=== PATIENT | female | born 1975 | race Caucasian/White ===

== ENCOUNTER → 2024-02-04 15:17 | Outpatient (REF) | payer OTHER, SELFPAY | LOC: ANHLAB 15:17 | PROVIDERS: PCP Family Medicine; Visit Provider Plastic Surgery | DX: H02.66 Xanthelasma of left eye, unspecified eyelid (principal) | CPT/HCPCS: 88305 ==

== ENCOUNTER → 2024-11-19 09:07 | Outpatient (CLI) | payer OTHER, SELFPAY ==
--- NOTE | ~2024-11-19 | XR_ITS ---
XR hip RT min 2V 11/19/2024 09:36 Indication: Right hip pain Procedure: 2 views right hip Comparison: No prior studies for comparison. Findings: No fracture, subluxation or dislocation. No soft tissue abnormality. No foreign bodies. Impression: 1: No acute bone or joint abnormality. Reviewed, dictated and finalized at location B. NI RELATIONS OFFICER Impression: 1: No acute bone or joint abnormality.
--- NOTE | ~2024-11-19 | XR_ITS ---
Lumbosacral Spine: AP, oblique, and lateral views Clinical History: Pain Findings: The normal lordotic curve is maintained. The vertebral bodies and posterior elements are i ntact. The intervertebral disc spaces are preserved. The sacroiliac joints are normally outlined. Impression: No significant abnormality. Reviewed, dictated and finalized at [facility]. CARVER HAND Impression: No significant abnormality.
--- OUTSIDE RECORDS SUMMARY | 2024-11-19 09:20 | XMS_ITS | Clinical Summary ---
Author Organization [facility] Address [address] [place] [address] Care Team Providers Care Machinist Job Setter Name Role Phone Ivon Hitchcock MD Unavailable [phone] Ino Basilio MD Primary Care Provider [phone] Allergies Active Allergy Reactions Criticality Noted Date Comments Penicillins Other (See comments),Hives High Reaction: Unknown, , Reaction: Hives, Medications cranberry 400 mg capsule Take 1 capsule by mouth daily 04/13/2020 Active lisinopriL (PRINIVIL,ZESTR IL) 10 mg tablet TAKE 1 TABLET(10 MG) BY MOUTH DAILY 90 tablet 12/20/2022 Active famotidine (PEPCID) 20 mg tablet Take 1 tablet by mouth daily 06/23/2021 Active ferrous sulfate 325 mg (65 mg of elemental iron) tablet Take 1 tablet by mouth daily 03/14/2022 Active loratadine (CLARITIN) 10 mg tablet Take 1 tablet by mouth daily 06/23/2021 Active cholecalciferol (VITAMIN D-3) 2000 unit capsule 2,000 Units Active multivitamin capsule Take 1 capsule by mouth daily Active Active Problems Problem Noted Date Diagnosed Date 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 Family history of colon cancer in father 022 Special screening for malignant neoplasms, colon 03/23/2022 Overview (03/23/2022): Added automatically from request for surgery [id number] Class 2 obesity due to exces s calories without serious comorbidity with body mass index (BMI) of 38.0 to 38.9 in adult 06/05/2018 Gestational diabetes mellitus, class A2 06/20/20 16 Dysuria 12/12/2015 Anovulation 11/03/2015 Possible , not yet confirmed 06/29/2015 Female infertility 03/24/2014 Hypertension Immunizations Name Administration Dates Next Due Influenza, Quadrivalent, Spl it, Preservative Free, Intramuscular 07/22/2021 MMR 07/01/2016 Tdap 06/14/2016 Surgical History Surgery Date Site/Laterality Comments TUBAL LIGATION BTL OTHER SURGICAL HISTORY 10/14/2005 - 10/13/2006 ovarian cyst removed, RSO OTHER SURGICAL HISTORY ovarian cysts: cystectomy OTHER SURGICAL HISTORY placenta previa and GDM: c/section OTHER SURGICAL HISTORY : ENDOMETRIAL BIOPSY BREAST BIOPSY 06/26/2022 Left BREAST BIOPSY 07/03/2022 Left COLONOSCOPY OOPHERECTOMY Left SECTION Medical History Medical History Date Comments Hx Other Medical ovarian cysts; Comments: CYC 01/14/2017 - Hx Other Medical placenta previa and GDM; Comments: CYC 01/14/2017 -daughter Hx Other Medical ; Comm ents: CYC 01/14/2017 - Abnormal Pap smear of cervix Hypertension GERD (gastroesophageal reflux disease) Hyperlipidemia Family History Medical History Relation Name Comments Colon cancer Father Cancer, colon; Relation Name Status Comments Father Social History Tobacco Use Types Packs/Day Years Used Date Smoking Tobacco: Never Smokeless Tobacco: Never AUDIT-C Answer Date Recorded Q1: How often do you have a drink containing alc ohol? 2-4 times a month 12/20/2022 Q2: How many drinks containi ng alcohol do you have on a typical day when you are drinking? 1 or 2 12/20/2022 Q3: How often do you have si x or more drinks on one occasion? Less than monthly 12/20/2022 PHQ-2 Answer Date Recorded PHQ-2 Total Score (If total score is 3 or more points, staff should administer the PHQ-9) 0 03/23/2022 Personal Safety Answer Date Recorded Getting School Help Needed Denies 10/08 Comments No Sex and Gender Information Value Date Recorded Sex Assigned at Not on file Legal Sex Female 4:42 AM GASTROENTEROLOGIST Gender Identity Female 10/25/2020 7:57 AM GASTROENTEROLOGIST Sexual Orientation Straight 10/25/2020 7: 57 AM GASTROENTEROLOGIST Obstetrics History Para Term AB IAB SAB Ectopic Multiple Livin g Live Births 2 2 2 Date Outcome GA Total Labor Labor/2nd/3rd Weight Sex Type Anes PTL Estrella A1 A5 Name Clin Term Term Last Filed Vital Signs Vital Sign Reading Time Taken Comments Blood Pressure 132/92 12/26/2022 12:15 PM CDT Pulse 93 12/26/2022 12:15 PM CDT Temperature 36.4 C (97.6 F) 12/26/2022 11:42 AM CDT Respiratory Rate 17 12/26/2022 12:1 5 PM CDT Oxygen Saturation 98% 12/26/2022 12: 15 PM CDT Inhaled Oxygen Concentration - - Weight 113.6 kg (250 lb 7.1 oz) 11/19/2022 2:43 PM GASTROENTEROLOGIST Height 165.1 cm (5' 5 ) 11/19/2022 2:43 PM GASTROENTEROLOGIST Body Mass Index 41.68 11/19/2022 2:43 PM GASTROENTEROLOGIST Plan of Treatment Health Maintenance Due Date Last Done Comments Albumin Creatinine Ratio, Urine 1975 Hemoglobin A1C 1975 Dilated Eye Exam 1975 Foot Exam 1975 Lipid Panel 1975 Pneumococcal vaccine <65 (1 of 2 - PCV) 1981 Hepatitis B Screening 1993 Cervical Cancer Screening 10/26/2021 10/26/2020 eGFR 03/11/2023 03/11/2022 Depression Screening 03/23/2023 03/23/2022 Regular Well Visit/Exam 18-64 03/23/2023, 10/26/2020, 06/05/2018 Covid-19 Vaccine ( season) 2024 09/08/2021, 01/10/2021, 12/20/2020 Influenza Vaccine (#1) 2024 07/22/2021 Breast Cancer Screening-Mammogram 12/25/2024 024, 06/04/2022 DTaP/Tdap/Td Vaccine (2 - Td or Tdap) 06/14/202610/2015 Colon Cancer Screening-Colonoscopy 12/26/20323 Hepatitis C Screening Completed 01/12/2014 Procedures Procedure Name Priority Date/Time Associated Diagnosis Comments SCREENING MAMMOGRAM BILATERAL W DESMOND Schedule Routine, Read Routine (OP Routine) 12/26/2023 1:15 PM CDT Screening mammogram, encounter for COLONOSCOPY 12/26/2022 11:03 AM CDT EGFR STAT 03/11/2022 11:03 PM CDT PAP WITH REFLEX TO HIGH RISK HPV Routine 10/26/2020 10:52 AM GASTROENTEROLOGIST SERUM HEPATITIS C AB Routine 01/12/2014 6:00 AM CDT from Last 3 Months or Most Recently Relevant to Health Maintenance Results * Screening Mammogram Bilateral W Desmond (12/26/2023 1:15 PM CDT) Anatomical Region Laterality Modality Breast Bilateral Mammography Impressions 12/26/2023 1:29 PM CDT BI-RADS ATLAS category (overall): 1 - Negative There is no mammographic evidence of malignancy. A 1 year screening mammogram is recommended. The patient has been or will be contacted. We recommend annual screening mammography for women at average risk of breast cancer beginning at age 40, based on guidelines of the [employer] (ACR Practice Parameter for the Performance of Screening and Diagnostic Mammography) and [employer]. For women with and elevated risk of breast cancer, please refer to the ACR Practice Parameter for specific screening recommendations. The patient will be entered into a reminder system with a target due date of 1 year for her next screening exam. Narrative 12/26/2023 1:29 PM CDT Screening Mammogram Bilateral W Desmond: 12/26/23 The study was acquired using full field digital technology and interpreted from soft copy. 2D digital mammographic views, as well as 3D digital tomosynthesis were performed in the CC and MLO projections. CLINICAL: Screening mammogram, encounter for. No relevant medical history has been documented for this patient. No known family history of breast cancer. COMPARISONS: 09/26/2022 Diagnostic Mammogram Left W Desmond 07/03/2022 Stereotactic Breast Biopsy Left 06/26/2022 US Guided Breast Biopsy Left 06/14/2022 US Breast Left Limited 06/04/2022 Screening Mammogram Bilateral W Desmond 12/19/2017 Breast Imaging Screening Outside Reference 12/07/2016 Breast Imaging US Outside Reference 11/16/2016 Breast Imaging Screening Outside Reference BREAST TISSUE: The breasts have scattered areas of fibroglandular density. FINDINGS: There are unchanged biopsy marking clips in the left breast. No suspicious masses, suspicious calcifications, or other suspicious findings are seen within either breast. There has been no suspicious change. us Self Screening Mammogram IMG MAMMO PROCEDURES Fi nal Result * COLONOSCOPY (12/26/2022 11:03 AM CDT) Anatomical Region Laterality Modality Other Narrative Procedure Note Arabella Hand MD - 12/26/2022 11:03 AM CDT [facility] ENDOSCOPY Patient Name: Shana Grimm Procedure Date: 12/26/2022 11:03 AM Date of : 1975 Admit Type: Outpatient Age: 47 Gender: Female Attending MD: Arabella Hand M.D. Room: [facility] ENDOSCOPY ROOM 05 Note Status: Finalized Procedure: Colonoscopy Indications: Family history of colon cancer in a first-degree relative before age 60 years Referring MD: Providers: Arabella Hand M.D. Medicines: See the Anesthesia note for documentation of the administered medications Complications: No immediate complications. Estimated Blood Loss: Estimated blood loss was minimal. Procedure: The benefits, risks and alternatives of theprocedure and sedation were discussed and informed consentwas obtained. All questions were answered. Please referto the signed informed consent document in the medical record. The scope was passed under direct vision.The CF-H180AL colonoscope was introduced through theanus and advanced to the cecum, identified byappendiceal orifice and ileocecal valve. The colonoscopy was performed without difficulty. The patient tolerated the procedure well. The quality of the bowel preparation was adequate. Findings: The perianal and digital rectal examinations were normal. The exam was otherwise normal throughout the examined colon. Non-bleeding internal hemorrhoids were found during retroflexion. Impression: - Non-bleeding internal hemorrhoids. - No specimens collected. Recommendation: - Repeat colonoscopy in 5 years for surveillance. Arabella Hand M.D. Arabella Hand M.D. 12/26/2022 11:43:57 AM . Number of Addenda: 0 Note Initiated On: 12/26/2022 11:03 AM Recognized by the [employer] for promoting quality in endoscopy us Arabella Hand MD ENDOSCOPY PROCEDURES Final Resul t * eGFR (03/11/2022 11:03 PM CDT) eGFR >90 90 - 130 mL/min/1. 73 m2 DUNIA HERNANDEZ Comment: Interpretive Data Reference Interval Normal >/= 90 mL/min/1.73m2 Mildly decreased* 60 - 89 mL/min/1.73m2 Mildly to moderately decreased 45 - 59 mL/min/1.73m2 Moderately to severely decreased 30 - 44 mL/min/1.73m2 Severely decreased 15 - 29 mL/min/1.73m2 Kidney Failure < 15 mL/min/1.73m2 *Relative to young adult level Estimated glomerular filtration rate is determined by the 2020 CKD-EPI equation recommended by the National Kidney Foundation (A Unifying Approach to GFR Estimation: Recommendations of the NKF-ASK Task Force on Reassessing the Inclusion of Race in Diagnosing Kidney Disease, JASN 2020). The CKD-EPI equation should not be used for patients with unstable renal function and has not been validated in children and those over 70. Current interpretive data was last reviewed 2021. Blood 03/11/2022 11:0 3 PM CDT 03/11/2022 11:17 PM CDT Mack Boggs MD LAB BLOOD ORDERABLES Final Result Performing Organization Address City/State/[facility] Co de Phone Number [facility] Department of Laboratories [place] [phone] * Pap with reflex to High Risk HPV (10/26/2020 10:52 AM GASTROENTEROLOGIST) 10/26/2020 10:5 2 AM GASTROENTEROLOGIST 10/27/2020 10:52 AM GASTROENTEROLOGIST Narrative 11/02/2020 10:26 AM GASTROENTEROLOGIST [facility] Department of Pathology [address] [place] [id number] Final Report with Addendum Patient Name: SHANA GRIMM Address: [address] [place] [address] Gender: F : 1975 (Age: 45) Service: Laboratory Location: Lab [facility] #: [id number] Patient Type: Ref Lab Taken: 10/26/2020 Received: 10/27/2020 Accessioned:: 10/28/2020 Reported: 11/02/2020 Physician(s): ASHUTOSH Houston WHNP Diagnosis: Source of Specimen: Imaged Thinprep Pap Test plus HPV - County Or City Auditor Cytologic Material Specimen Adequacy: - Satisfactory for evaluation; endocervical/transformation zone component present General Category: - Negative for intraepithelial lesion or malignancy MARIIA Rivas(ASCP) MARIIA Man(ASCP) Report Electronically Reviewed and Signed Out By LORRAINE ManASCP) 11/02/2020 10:26:39 Addenda: HPV Test Interpretation NEGATIVE for types 16, 18, 31, 33, 35, 39, 45, 51, 52, 56, 58, 59, 66 and 68. Test performed utilizing Gen-doo Aptima assay. MARIIA Man(ASCP) Report Electronically Reviewed and Signed Out By LORRAINE ManASCP) 11/01/2020 15:35:19 Specimen(s) Received: A: Imaged Thinprep Pap Test plus HPV - County Or City Auditor Cytologic Material Clinical History: Last Menstrual Period: 10/17/2020 Menstrual History: Previous Abnormal Pap: ASCUS Regular Cycles The Pap test is a screening test used to aid in the detection of cervical cancer and its precursors. It should not be the sole means by which malignant and premalignant lesions are diagnosed. Both false negative and false positive results may occur. It also has poor sensitivity for the detection of endometrial lesions and should not be used to evaluate suspected endometrial abnormalities. For these reasons it is most important to obtain Pap tests at regular intervals. The performance characteristics of some immunohistochemical stains, fluorescence in-situ hybridization tests and immunophenotyping by flow cytometry cited in this report (if any) were determined by the Surgical Pathology Department at [facility] as part of an ongoing quality control industrial engineer program and in compliance with federally mandated regulations drawn from the Clinical Laboratory Improvement Act of 1988 (CLIA '88). Some of these tests rely on the use of analyte specific reagents and are subject to specific labeling requirements by the US Food and Drug Administration. Such diagnostic tests may only be performed in a facility that is certified by the Department of Health and Human Services as a high complexity laboratory under CLIA '88. The FDA has determined that such clearance or approval is not necessary. This test is used for clinical purposes. It should not be regarded as investigational or for research. Nevertheless, federal rules concerning the medical use of analyte specific reagents require that the following disclaimer be attached to the report: This test was developed and its performance characteristics determined by the Surgical Pathology Department [facility]. It has not been cleared or approved by the U. S. Food and Drug Administration. us Melodie House NP LAB CYTOLOGY ORDERABLES Fi nal Result * Serum Hepatitis C ab (01/12/2014 6:00 AM CDT) HCV ab Negative NEG HISTORICAL RESULTS Serum 01/12/2014 6:00 AM CDT Narrative HISTORICAL RESULTS - 01/13/2014 4:47 AM CDT {Testing performed by: [place] [address]} Interpretive Data If confirmation is required, call Laboratory Customer Service to request sample to be sent to [facility] for Hepatitis C Virus (HCV) RNA Detection and Quantitation by Real-Time Reverse Humanities Division Chair-PCR (RT-PCR). Current interpretive data was last revised on 2012 us Arnoldo Smith MD LAB BLOOD ORDERABLES Final Re sult HISTORICAL RESULTS from Last 3 Months or Most Recently Relevant to Health Maintenance Insurance [facility] CHOICE PLUS [facility] HMO/PPO Address: [facility] [id number] [place] [id number] [facility] CHOICE PLUS [facility] H[facility]/[place] [address] [facility] CHOICE PLUS [facility] HMO/PPO Address: [place] [phone] Care Teams Machinist Job Setter Relationship Specialty Start Date End Date Ino Basilio MD [address] [address] PCP - General Family Medicine 12/26/23 Ivon Hitchcock MD Consulting Physician Obstetrics and Gynecology 06/04/22
--- OUTSIDE RECORDS SUMMARY | 2024-11-19 09:20 | XMS_ITS | Referral Summary ---
Author Organization [facility] Address [address] [place] [address] Care Team Providers Care Mdm Developer Name Role Phone Ivon Hitchcock MD Unavailable [phone] Ino Basilio MD Primary Care Provider [phone] Allergies Active Allergy Reactions Criticality Noted Date [...] (03/23/2022): Added automatically from request for surgery [id number] Class 2 obesity due to exces s calories without serious comorbidity with body mass index (BMI) of 38.0 to 38.9 in adult 06/05/2018 Gestational diabetes mellitus, class A2 06/20/20 16 Dysuria 12/12/2015 Anovulation 11/03/2015 Possible , not yet confirmed 06/29/2015 Female infertility 03/24/2014 Hypertension Immunizations Name Administration Dates Next Due Influenza, Quadrivalent, Spl it, Preservative Free, Intramuscular 07/22/2021 MMR 07/01/2016 Tdap 06/14/2016 Social History Tobacco Use Types Packs/Day Years [...] on file Legal Sex Female 4:42 AM CHAIN CARRIER Gender Identity Female 10/25/2020 7:57 AM CHAIN CARRIER Sexual Orientation Straight 10/25/2020 7: 57 AM CHAIN CARRIER Last Filed Vital Signs Vital Sign Reading Time Taken Comments Blood Pressure 132/92 12/26/2022 12:15 PM CDT Pulse 93 12/26/2022 12:15 PM CDT Temperature 36.4 C (97.6 F) 12/26/2022 11:42 AM CDT Respiratory Rate 17 12/26/2022 12:1 5 PM CDT Oxygen Saturation 98% 12/26/2022 12: 15 PM CDT Inhaled Oxygen Concentration - - Weight 113.6 kg (250 lb 7.1 oz) 11/19/2022 2:43 PM CHAIN CARRIER Height 165.1 cm (5' 5 ) 11/19/2022 2:43 PM CHAIN CARRIER Body Mass Index 41.68 11/19/2022 2:43 PM CHAIN CARRIER Plan of Treatment Not on file Procedures Procedure Name Priority Date/Time Associated Diagnosis Comments SCREENING MAMMOGRAM BILATERAL W DESMOND Schedule Routine, Read Routine (OP Routine) 12/26/2023 1:15 PM CDT Screening mammogram, encounter for COLONOSCOPY 12/26/2022 11:03 AM CDT EGFR STAT 03/11/2022 11:03 PM CDT PAP WITH REFLEX TO HIGH RISK HPV Routine 10/26/2020 10:52 AM CHAIN CARRIER SERUM HEPATITIS C AB Routine 01/12/2014 6:00 [...] age 40, based on guidelines of the [place] [employer] (ACR Practice Parameter for the Performance of Screening and Diagnostic Mammography) and [place] [employer]. For women [...] Hand MD - 12/26/2022 11:03 AM CDT [facility] GI ENDOSCOPY Patient Name: Shana Grimm Procedure Date: 12/26/2022 11:03 AM Date of : 1975 Admit Type: Outpatient Age: 47 Gender: Female Attending MD: Arabella Hand M.D. Room: [facility] ENDOSCOPY ROOM 05 Note Status: Finalized Procedure: [...] On: 12/26/2022 11:03 AM Recognized by the [place] for promoting quality [...] Boggs MD LAB BLOOD ORDERABLES Final Result [facility] Department [place] [address] * Pap with reflex to High Risk HPV (10/26/2020 10:52 AM CHAIN CARRIER) 10/26/2020 10:5 2 AM CHAIN CARRIER 10/27/2020 10:52 AM CHAIN CARRIER Narrative 11/02/2020 10:26 AM CHAIN CARRIER [facility] Department of Pathology [address] [place] [address] Final Report with Addendum Patient Name: SHANA GRIMM Address: [address] [place] [address] Gender: F : 1975 (Age: 45) Service: Laboratory Location: Lab [facility] #: [id number] Patient Type: Ref Lab Taken: 10/26/2020 Received: 10/27/2020 Accessioned:: 10/28/2020 Reported: 11/02/2020 Physician(s): ASHUTOSH Houston WHNP Diagnosis: Source of Specimen: Imaged Thinprep Pap Test plus HPV - Aircraft Layout Worker Cytologic Material Specimen Adequacy: - Satisfactory for evaluation; endocervical/transformation zone component present General Category: - Negative for intraepithelial lesion or malignancy MARIIA Rivas(ASCP) MARIIA Man(ASCP) Report Electronically Reviewed and Signed Out By LORRAINE ManASCP) 11/02/2020 10:26:39 Addenda: HPV Test Interpretation NEGATIVE for types 16, 18, 31, 33, 35, 39, 45, 51, 52, 56, 58, 59, 66 and 68. Test performed utilizing Gen-Probe Aptima assay. MARIIA Man(ASCP) Report Electronically Reviewed and Signed Out By LORRAINE ManASCP) 11/01/2020 15:35:19 Specimen(s) Received: A: Imaged Thinprep Pap Test plus HPV - Aircraft Layout Worker Cytologic Material Clinical History: Last Menstrual Period: [...] determined by the Surgical Pathology Department at [facility] as part of an ongoing quality systems engineer program and in compliance with federally [...] characteristics determined by the Surgical Pathology Department [facility]. It has not been cleared or approved by the U. S. Food and Drug Administration. us Melodie House NP LAB CYTOLOGY ORDERABLES Fi nal Result * Serum Hepatitis C ab (01/12/2014 6:00 AM CDT) HCV ab Negative NEG HISTORICAL RESULTS Serum 01/12/2014 6:00 AM CDT Narrative HISTORICAL RESULTS - 01/13/2014 4:47 AM CDT {Testing performed by: [place] [address]} Interpretive Data If confirmation is required, call Laboratory Customer Service to request sample to be sent to [facility] for Hepatitis C Virus (HCV) RNA Detection and Quantitation by Real-Time Reverse Hand Screen Printer-PCR (RT-PCR). Current interpretive data was last revised on 2012 us Arnoldo Smith MD LAB BLOOD ORDERABLES Final Re sult HISTORICAL RESULTS from Last 3 Months or Most Recently Relevant to Health Maintenance Insurance [facility] CHOICE PLUS [facility] CHOICE PLUS [facility] CHOICE PLUS Care Teams Mdm Developer Relationship Specialty Start Date End Date Ino Basilio MD [address] [address] PCP - General Family Medicine 12/26/23 Ivon Hitchcock MD Consulting Physician Obstetrics and Gynecology 06/04/22
--- OUTSIDE RECORDS SUMMARY | 2024-11-19 09:21 | XMS_ITS | Data Portability ---
Author Organization [facility] Address [address] [place] [address] Care Team Providers Care Cheese Pancake Roller Name Role Phone GILMER COLEMAN Primary Care Provider [phone] Assessment Encounter Date Assessment Date Assessment LastModified by Organization Details LastModified Time 01/22/2024 01/22/2024 Annual gynecological exam performed. Patient will come back in a year unless there are new symptoms. Not available 01/21/2024 12:58:04 Plan of Treatment Reminders Order Date Submit Date Provider Last Modified By Organization Details Last Modified Time Details Appointments None record ed. Lab None record ed. Referral None record ed. Procedures None record ed. Surgeries None record ed. Imaging None record ed. Medication Orders None record ed. Patient TargetsNo targets recorded. Patient InstructionsNo instructions recorded. Reason for Referral None Reported. Results Created Date Observation Date Name Description Value Unit Range Abnormal Flag Note LastModifiedBy Organization Detail LastModifiedTime 01/22/20 24 01/22/2024 IMAGE GUIDE D PAP AND HPV REGAR DLESS image guided Pap, HPV regardless of Pap result SEE RESULT S BELOW CASE REPOR T: Cytol ogy Gynec ologi srinath Repor t Case: [id number] Autho mary jo g Provi neo: Radha Barraza, ADELINA Colle cted: 01/21 1544 Order ing Locat ion: [place] [facility] Recei rajan: 01/22 0653 First Scree n: McBri de, Diane ret, CT Speci men: Scree dieudonne Pap - Image d, Cervi x STATE MENT OF ADEQU ACY: Satis facto ry for evalu ation Trans forma tion zone compo nent prese nt FINAL DIAGN OSIS: Negat sunitha for Intra epith elial Lesio n or Surendra landeroscy (NIL) . Elect daniellalukas moreliamaría elena tomasz d by Diane Curtis ret, CT on 2023 at 3:17 PM ----- ----- ----- ----- ----- ----- ----- ----- ----- ----- ----- ----- ----- ----- ----- ----- ----- ---- HPV RESUL TS: HPV mRNA E6/E7 : No HPV mRNA Detec [place] NOTE: This high risk HPV mRNA assay detec ts fourt een high- risk HPV types (16, 18, 31, 33, 35, 39, 45, 51, 52, 56, 58, 59, 66, 68) witho ut diffe renti ation . COMME NT: This speci men was revie wed by a Cytot echno logis t and/o r Patho logis t (as indic ated in this repor t) after evalu ation using the Thinp rep Imagi ng Syste m. CLINI SRINATH INFOR MATIO N: Menst rual Statu s: LMP (if appli cable ): Clini srinath Histo ry/Pr eviou s Pap: Type of Neopl thi (if appli cable ): Signi fican t Clini srinath Findi ngs: Other Histo ry: Hormo jenaro (if appli cable ): PAP EDUCA ESTEPHANIA L NOTE: The Pap Test is a scree dieudonne test with an inher ent false negat sunitha rate. Liqui d-bas ed sampl ing may decre ase, but will not elimi chaim, false negat sunitha resul ts. A negat sunitha resul t does not precl ude the prese nce and/o r devel opmen t of disea se, since the prese nce of abnor mal cells in the sampl e depen ds on the locat ion of the lesio n and sampl ing techn ique. Shola nued regul ar scree dieudonne is the best metho d of cance r preve ntion . If repor [place] cytol ogic findi ng do not corre late with physi srinath and/o r histo rical findi ngs, juan beard melita ion is recom vanessa d, as clini joann todd nted. Not Available [facility] (Lab) [address], [place], [address], 01/24/2024 16:21:56 Result Notes None recorded. Procedures Surgical History Date Name Laterality Status Provider Name and Address Organization Details Recorded Time 12/13/19 24 Date of Last Mammogram completed [facility] 01/22/2024 15:48:46 12/27/19 23 completed [facility] 01/22/2024 15:47:29 12/27/19 23 Date of Last Colonoscopy completed [facility] 01/22/2024 15:47:29 10/14/19 23 Breast Biopsy completed ASHUTOSH Walters [address], [place], [address], [facility] 01/22/2024 16:13:48 01/13/20 18 colposcopy completed ASHUTOSH Walters [address], [place], [address], [facility] 01/22/2024 16:13:02 06/28/20 16 Caesarean Section completed ASHUTOSH Walters [address], [place], [address], [facility] 01/22/2024 16:14:09 02/12/20 06 oophorectomy completed ASHUTOSH Walters [address], [place], [address], [facility] 01/22/2024 16:12:41 01/13/20 06 Tubal Ligation completed ASHUTOSH Walters [address], [place], [address], [facility] 01/22/2024 16:13:22 01/13/20 06 Ovarian Cystectomy completed ASHUTOSH Walters [address], [place], [address], [facility] 01/22/2024 16:12:06 01/13/20 02 Ovarian Cystectomy completed ASHUTOSH Walters [address], [place], [address], [facility] 01/22/2024 16:11:38 Colonoscopy completed Corazon Bills [facility] 01/22/2024 15:47:45 Imaging Results None recorded. Procedure Notes None recorded. Medical Equipment None Reported. Allergies Allergen ID Allergen Name Allergen Category Reaction Reaction Severity Criticality Documentation Date Start Date Code Code System Note Provider Name and Address Organization Details Recorded Time 12588 Penicilli n Not available hives severe Not available 01/22/2024 43593 RxNorm Corazon veloz, [facility] 15:47:14 Medications Name Sig Start Date Stop Date Status Note LastModified by Organization Details LastModified Time azithromyci n 250 mg tablet TK 2 TS PO ON DAY 1, THEN TK 1 T PO D FOR 4 DAYS 12/29 completed Not Available Not Available Not Available benzonatate 200 mg capsule TAKE 1 CAPSULE BY MOUTH EVERY 8 HOURS FOR 7 DAYS NEEDED 12/29 completed Not Available Not Available Not Available Zyrtec 5 mg tablet active Not Available Not Available Not Available tobramycin 0.3 % eye drops 01/20 completed Not Available Not Available Not Available lisinopril 10 mg tablet TAKE 1 TABLET BY MOUTH DAILY active Not Available Not Available No t Available methylpredn isolone 4 mg tablets in a dose pack FOLLOW PACKAGE DIRECTION S 12/29 completed Not Available Not Available Not Available fluticasone propionate 50 mcg/actuati on nasal spray,suspe nsion SHAKE LIQUID AND USE 2 SPRAYS IN EACH NOSTRIL EVERY DAY DIRECTED 12/29 completed Not Available Not Available Not Available rosuvastati n 5 mg tablet TAKE 1 TABLET BY MOUTH EVERY DAY active Not Available Not Available No t Available Wegovy 1.7 mg/0.75 mL subcutaneou s pen injector INJECT 1.7 MG UNDER THE SKIN EVERY WEEK DIRECTED active Not Available Not Available No t Available Wegovy 1 mg/0.5 mL subcutaneou s pen injector ADMINISTE R 1 MG UNDER THE SKIN EVERY WEEK 12/29 completed Not Available Not Available Not Available Wegovy 0.25 mg/0.5 mL subcutaneou s pen injector ADMINISTE R 0.25MG UNDER THE SKIN EVERY WEEK 12/29 completed Not Available Not Available Not Available Wegovy 0.5 mg/0.5 mL subcutaneou s pen injector INJECT 0.5MG UNDER THE SKIN WEEKLY DIRECTED 12/29 completed Not Available Not Available Not Available Vitals Date Recorded Body weight Body mass index (BMI) Body height Systolic blood pressure Diastolic blood pressure Provider Name and Address Organization Details Last Updated DateTime 01/22/2024 74320.54 g 36.1 kg/m2 165.1 cm 108 mm[Hg] 73 mm[Hg] Corazon Negar [facility] 15:47:04 Social History Question Answer Notes LastModified by Organizat ion Details LastModified Time Tobacco Smoking Status Former Smoker Corazon [facility] 01/22/2024 15:50:48 What Is Your Level Of Alcohol Consumption? Occasional Information not available 01/22/2024 How Many Years Have You Consumed Alcohol? 28 Information not available 01/22/2024 Are You Blind Or Do You Have Difficulty Seeing? No Information not available 01/22/2024 What Is Your Level Of Caffeine Consumption? Moderate Information not available 01/22/2024 How Much Tobacco Do You Chew? None Information not available 01/22/2024 In The 14 Days Before Symptom Onset, Have You Had Close Contact With A Laboratory-confir med COVID-19 While That Case Was Ill? No Information not available 01/22/2024 In The 14 Days Before Symptom Onset, Have You Had Close Contact With A Person Who Is Under Investigation For COVID-19 While That Person Was Ill? No Information not available 01/22/2024 Have You Been To An Area Known To Be High Risk For COVID-19? No Information not available 01/22/2024 Are You Deaf Or Do You Have Serious Difficulty Hearing? No Information not available 01/22/2024 What Type Of Diet Are You Following? REGULAR Information not available 01/22/2024 What Is The Highest Grade Or Level Of School You Have Completed Or The Highest Degree You Have Received? 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 Yes Information not available 01/22/2024 Do You Use Protection During Sex? No Information not available 01/22/2024 Do You Use Your Seat Belt Or Car Seat Routinely? Yes Information not available 01/22/2024 Do You Have Smoke And Carbon Monoxide Detectors In Your Home? Yes Information not available 01/22/2024 How Much Tobacco Do You Smoke? No Information not available 01/22/2024 Do You Feel Stressed (tense, Restless, Nervous, Or Anxious, Or Unable To Sleep At Night)? [id number] Information not available 01/22/2024 Do You Use Any Illicit Or Recreational Drugs? Yes Information not available 01/22/2024 Do You Use Sunscreen Routinely? Yes Information not available 01/22/2024 Have You Used IV Drugs? No Information not available 01/22/2024 Sex: Unknown Functional Status Question Answer Note LastModified by Organizat ion Details LastModified Time Are you able to walk? YESWOREST Information not available 01/22/2024 What is your exercise level? Occasional Information not available 01/22/2024 Mental Status None recorded. Family History Relationship Description Onset Age of this Age Resolved Age Notes LastModified by Organization Details LastModified Time Maternal Grandfather Heart disease [email or web address] Not available 2023 15:47:18 Paternal Grandfather Heart disease [email or web address] Not available 2023 15:47:19 Daughter Malignant lymphoma magy Not available 2023 15:53:48 Father Malignant tumor of colon magy Not available 2023 15:59:10 Paternal Uncle Malignant tumor of colon magy Not available 2023 15:59:31 Medical History Condition Response Heart Problems Y Acid Reflux (GERD) Y History of abnormal pap Y Urinary Tract Infection Y Neurologic/Epilepsy Breast Problem Y Gestational Diabetes Y Anemia Y High Cholesterol Y Depression/ depression Y Art (IVF or FET) Y History of STI Y Polycystic ovary syndrome Y Pre-Eclampsia Y Hypertension Y Gynecological History Statement/Question Response Date of Last Mammogram 12/13/2023 Date of LMP 09/24/2023 On BCP's at Conception? Y N Was last menstrual period normal Y STIs/STDs Y HPV Vaccine N Duration of Flow (days) 5 Current Control Method Tubal Ligat ion Age at First Child 27 Date of Last Colonoscopy 12/26/2022 Frequency of Cycle (Q days) 7 Sexually Active? Y Age of first menstrual cycle 12 Date of Last Pap Smear Sexual Problems? Y LMP Approximate 12/26/2022 N 11/04/2017 Obstetrics History GPAL:G 3 P 0 0 1 2 Type Value Spontaneous 1 Living 2 Total 3 Past Encounters Encounter ID Performer Location Encounter Start Date Encounter Closed Date Diagnosis/Indication Diagnosis SNOMED-CT Code Diagnosis ICD10 Code Diagnosis Note [id number] ASHUTOSH Walters [place] [address] [address] 01/22/2024 15:43:36 01/23/2024 11:08:07 Gynecologic examination 02293778 Z01.419 WWEpostmen opausalpap updateddec lined STI testingmam mogram UTD - due next 5colo noscopy UTDroutine labs UTD/PCPRTC in 1 yr or sooner if needed Suggested Calcium with Vitamin D daily. Patient advised to get an annual flu shot in the fall and she could obtain at [facility] or [facility] care clinic. Also to obtain TDap vaccinatio n if you have not had one in the last 10 years. Recommend yearly mammograms . Encouraged monthly self breast exams. Encourage safe sexual practices, to use condoms and limit partners if not already in a monogamous relationsh ip. Engage in regular exercise. Avoid tobacco and illicit drugs. This lifestyle behavior pattern will lead to less health conditions and longer life span. If BMI greater than 25 dietary consult advised. All questions have been answered. Patient appears to understand informatio n, but if you have any questions please call or respond to this email. Vaginal dryness 24844170 N89.8 veg based moisturize r discussed, can use as lubricant with ICdiscusse d vaginal estrogen cream - declined at this time Health Concerns Section Related Observation LastModified by Organization Detai ls LastModified Time None Recorded Concern Status LastModified by Organization Details LastModified Time None Recorded Advance Directives Directive None Recorded Payers Encounter Date Sequence Insurance Name Policy Number Policy Armstrong Covered Member ID Armstrong Member ID Guarantor Name 01/22/2024 1 [facility] [id number] Christopher Grimm [id number] Christopher Grimm Notes Date Note Type Note Provider Name and Address Organization Details Recorded Time 4 text/html Annual Wood Floor Refinisher Post-MenopausalReporte d bypatient.Menopausal Symptoms:no menopausal symptoms; normal vaginal lubrication Vaginal Bleeding:history of menopause having occurred; no history of post menopausal bleeding Urinary Symptoms:no hematuria; no incontinence; no nocturia; no urinary frequency Vulva:no genital lesion; no vulvar atrophy Vagina:normal vaginal discharge; no vaginal atrophy Breast:no breast lump; no nipple discharge; no breast pain Sexual Complaints:no sexual complaints Psychological Symptoms:no depression; no anxiety Preventive Measures:encourage regular mammograms starting age 40; encourage self breast examination; encourage regular exercise; encourage no tobacco use; mammogram performed within the past year; history of recent colonoscopyNotes:WWEh/ o BTL with right oopherectomy for benign ovarian cyst in 2005LMP 12 months ago - no bleeding sincelast pap smear 3 yrs ago - normalh/o abnormal pap 6 yrs ago - normal biopsy per ptleft breast biopsy 1 yr ago, benign per pt. Had f/u with breast specialist - last mammogram 12/2023 - normalcolonoscopy 2022 - told to repeat in 5 yrs vaginal dryness at times ASHUTOSH Walters [address], [place], [address], [facility] 01/22/2024 17:03:39 OBGyn Episode Ob Episode Information Episode Created Date Number of Fetuses Patient Bloodtype Patient rh Status Prepregnancy Weight lbs Domestic Partner Domestic Partner Phone Father Name Early Childhood Associate Teacher Status 01/22/20 24 1 CLOSED Fetus Data First Name Last Name Admitted to NICU Weight (g) Sex Living Outcome Pediatric Complications Fetus ID Race Codes Race Delivery Type , Spontane ous [id number] Mariano Calculation Initial Mariano Date Initial Exam Date Initial Exam Provider Initial Ultrasound Date Last Menstrual Period Date Ultra Sound Weeks Gestation 0 Eighteen To Twenty Week Mariano Update Ultra Sound Date Fundal Height At Umbil Quickening Date Ultra Sound Latest Weeks Gestation Final Mariano Confirmed By Final Mariano Confirmed Date Final Mariano Date Ultra Sound Latest Days Gestation 0 0 Menstrual History Last Menstrual Date Menses Monthly On Bcp Conception Prior Menses Frequency Hcg Plus Date Menarche Onset Age Delivery Information Delivery Date Delivery Type Labor Anesthesia Weeks Gestation Incision Type Labor Labor Length Hrs Delivered By Post Complications Tubal Sterilization Discharge Date Comments 5 Discharge Information Feeding Method Contraceptive Method Maternal HG B and HCT Levels Ob Episode Information Episode Created Date Number of Fetuses Patient Bloodtype Patient rh Status Prepregnancy Weight lbs Domestic Partner Domestic Partner Phone Father Name Early Childhood Associate Teacher Status 01/22/20 24 1 CLOSED Fetus Data First Name Last Name Admitted to NICU Weight (g) Sex Living Outcome Pediatric Complications Fetus ID Race Codes Race Delivery Type 3175.14 4 F Prematur e [id number] Primary Mariano Calculation Initial Mariano Date Initial Exam Date Initial Exam Provider Initial Ultrasound Date Last Menstrual Period Date Ultra Sound Weeks Gestation 0 Eighteen To Twenty Week Mariano Update Ultra Sound Date Fundal Height At Umbil Quickening Date Ultra Sound Latest Weeks Gestation Final Mariano Confirmed By Final Mariano Confirmed Date Final Mariano Date Ultra Sound Latest Days Gestation 0 0 Menstrual History Last Menstrual Date Menses Monthly On Bcp Conception Prior Menses Frequency Hcg Plus Date Menarche Onset Age Delivery Information Delivery Date Delivery Type Labor Anesthesia Weeks Gestation Incision Type Labor Labor Length Hrs Delivered By Post Complications Tubal Sterilization Discharge Date Comments 6 Discharge Information Feeding Method Contraceptive Method Maternal HG B and HCT Levels Ob Episode Information Episode Created Date Number of Fetuses Patient Bloodtype Patient rh Status Prepregnancy Weight lbs Domestic Partner Domestic Partner Phone Father Name Early Childhood Associate Teacher Status 01/22/20 24 1 CLOSED Fetus Data First Name Last Name Admitted to NICU Weight (g) Sex Living Outcome Pediatric Complications Fetus ID Race Codes Race Delivery Type M Full Term [id number] Vaginal Delivery Mariano Calculation Initial Mariano Date Initial Exam Date Initial Exam Provider Initial Ultrasound Date Last Menstrual Period Date Ultra Sound Weeks Gestation 0 Eighteen To Twenty Week Mariano Update Ultra Sound Date Fundal Height At Umbil Quickening Date Ultra Sound Latest Weeks Gestation Final Mariano Confirmed By Final Mariano Confirmed Date Final Mariano Date Ultra Sound Latest Days Gestation 0 0 Menstrual History Last Menstrual Date Menses Monthly On Bcp Conception Prior Menses Frequency Hcg Plus Date Menarche Onset Age Delivery Information Delivery Date Delivery Type Labor Anesthesia Weeks Gestation Incision Type Labor Labor Length Hrs Delivered By Post Complications Tubal Sterilization Discharge Date Comments 2 Discharge Information Feeding Method Contraceptive Method Maternal HG B and HCT Levels
--- OUTSIDE RECORDS SUMMARY | 2024-11-19 09:21 | XMS_ITS | Clinical Summary ---
Author Organization [facility] Address [address] [place] [address] Phone Care Team Providers Care Aquarium Specialist Name Role Phone HankAdonis burr Primary Care Provider [phone] Allergies Active Allergy Reactions Criticality Noted Date Comments Penicillins Hives High 06/09/2016 Medications Vit 26-Lnjc-EU-DSS (ADVANCED ) 90-1-50 mg Tablet Take 1 Tablet by mouth daily. Active oxyCODONE-aceta minophen (PERCOCET) 5-325 mg tablet Take 1 Tablet by mouth every 4 hours as needed for Pain, Moderate (For Pain Scale 4-6). Max Daily Amount: 6 Tablet 45 Tablet 0 07/02/2016 Active sennosides-docu sate sodium (SENNA-S) 8.6-50 mg tablet Take 1 Tablet by mouth daily at bedtime. 30 Tablet 0 07/02/2016 Active ibuprofen (MOTRIN) 600 mg tablet Take 1 Tablet (600 mg) by mouth every 6 hours as needed for Pain, Mild. 50 Tablet 0 07/02/2016 Active Active Problems Problem Noted Date Diagnosed Date Status post delivery 06/28/2016 delivery 06/28/2016 Oligohydramnios in gama in third trimester 06/20/2016 Gestational diabetes mellitus, class A2 06/20/20 16 Advanced maternal age in multigravida 06/20/2016 Placental abruption in third trimester 6 Resolved Problems Problem Noted Date Diagnosed Date Resolved Date Vaginal bleeding 06/28/2016 06/28/2016 Placenta previa 06/09/2016 06/20/2016 Immunizations Immunization Administration Dates Next Due (ADACEL/BOOSTRIX)(10 YR UP) TDAP VACCINE, 0.5ML, IM 06/14/2016 (M-M-R II/PRIORIX)(12 MO UP) MEASLES, MUMPS AND RUBELLA VIRUS VACCINE, 0.5 ML IM/SUBCUT 07/01/2016 Family History Medical History Relation Name Comments Diabetes Brother Healthy Brother Cancer Father Other Mother Healthy Sister Relation Name Status Comments Brother Father Mother Sister Social History Tobacco Use Types Packs/Day Years Used Date Smoking Tobacco: Former Cigarettes 0.3 10 0 06/09/2001 - 06/09/2011 Alcohol Use Standard Drinks/Week Comments No 0 (1 standard drink = 0.6 oz pur e alcohol) Comments No Sex and Gender Information Value Date Recorded Sex Assigned at Not on file Legal Sex Female 12:23 PM CDT Gender Identity Not on file Sexual Orientation Not on file Last Filed Vital Signs Vital Sign Reading Time Taken Comments Blood Pressure 152/82 07/02/2016 8:31 AM CDT Pulse 88 07/02/2016 8:31 AM CDT Temperature 36.6 C (97.9 F) 07/02/2016 8:31 AM CDT Respiratory Rate 18 07/02/2016 8:31 AM CDT Oxygen Saturation 100% 07/02/2016 8:31 AM CDT Inhaled Oxygen Concentration - - Weight 107 kg (236 lb) 06/28/2016 2:35 AM CDT Height 165.1 cm (5' 5 ) 06/28/2016 2:35 AM CDT Body Mass Index 39.27 06/28/2016 2:35 AM CDT Plan of Treatment Health Maintenance Due Date Last Done Comments HEPATITIS B VACCINES (1 of 3 - 19+ 3-dose series) 1994 CERVICAL CANCER SCREENING 2005 BREAST CANCER SCREENING 2015 COLORECTAL SCREENING 01/18/2020 Colorectal Cancer Screening 01/18/2020 FIT-DNA Q 3 years 01/18/2020 FIT/FOBT Q 1 year 01/18/2020 Flex Sig/CT Colonography Q 5 years 01/18/2020 INFLUENZA VACCINE (#1) 2024 DTAP/TDAP/TD VACCINES (2 - T d or Tdap) 06/14/2026 06/14/2016 PNEUMOCOCCAL VACCINE 0-64 YEARS Aged Out No longer eligible based on patient's age to complete this topic Medical Devices Implanted Type Area Tractor Mechanic Device Identifier Shelf Expiration Date Model / Serial / Lot Barrier Seprafilm 5x6in [id number] - [id number] Implanted:Qty : 1 on 06/28/2016 by Ivon Hitchcock MD at [facility] Adhesion Barrier N/A: Abdomen [employer] [id number] 07/13/2018 [id number] / [id number] / [id number] Insurance [facility] [id number] Advance Directives For more information, please contact: [phone] * Full Code (Latest Code Status on File) Date Activated Date Inactivated Comments 06/28/2016 9:36 PM 07/02/2016 4:53 PM * Full Code Date Activated Date Inactivated Comments 06/28/2016 5:06 PM 06/28/2016 9:36 PM * Full Code Date Activated Date Inactivated Comments 06/28/2016 3:11 AM 06/28/2016 5:06 PM Care Teams Aquarium Specialist Relationship Specialty Start Date End Date Adonis Mckinney DO PCP - General Family Practice 04/02/16
== END ==
PROVIDERS: PCP Family Medicine; Visit Provider Family Medicine
DX: M25.551 Pain in right hip (principal); M54.41 Lumbago with sciatica, right side; G89.29 Other chronic pain
CPT/HCPCS: 72110; 73502